=== PATIENT | female | born 1980 | race Caucasian/White ===

== ENCOUNTER 2017-07-02 01:27 | Inpatient (IN) | payer BC, MEDICAID ==
[2017-07-02] MEDS ORDERED: Ondansetron 4 MG/2 ML SDV IV PRN (03:59)
[2017-07-02] MEDS ORDERED: Lactated Ringers 1,000 ML IV ONE (04:00)
[2017-07-02] MEDS ORDERED: Ropivacaine 100 ML ONE (04:43)
[2017-07-02] MEDS ORDERED: Ropivacaine 200 MG in Premix Bag 1 BAG EPIDUR SCH (04:45)
[2017-07-02] MEDS ORDERED: Lidocaine 1% 50 ML MDV ONE (07:19)
[2017-07-02] MEDS ORDERED: Lidocaine 1% 50 ML MDV INJECT SCH (09:45)
[2017-07-02] MEDS ORDERED: Sodium Chloride 0.9% 10 ML Syringe FLUSH PRN (09:48)
[2017-07-02] MEDS ORDERED: Acetaminophen 325 MG Tab PO PRN (09:48)
[2017-07-02] MEDS ORDERED: Ibuprofen 200 MG Tab, 24 Tab Bulk Bottle PO PRN (09:52)
[2017-07-02] MEDS ORDERED: Acetaminophen 325 MG Tab, 50 Tab Bulk Bottle PO PRN (09:52)
[2017-07-02] MEDS ORDERED: Lanolin 100% Cream 40 GM Tube TOP PRN (09:58)
[2017-07-02] MEDS ORDERED: Docusate Sodium 100 MG Cap PO PRN (09:58)
[2017-07-02] MEDS ORDERED: Witch Hazel Medicated Pads 100/Jar TOP PRN (09:58)
--- NOTE | 2017-07-02 11:39 | PCM.LDHP ---
L&D History of Present Illness - General Date of Service: 07/02/17 Admit Problem/Dx: Patient Status Order with Admit Dx/Problem 07/02/17 03:59 Patient Status [ADT] Routine 07/02/17 09:27 Patient Status [ADT] Routine Admission Diagnosis/Problem Admission Diagnosis/Problem Source of Information: Patient History Limitations: Reports: No Limitations - Related Data Allergies/Adverse Reactions: Allergies Allergy/AdvReac Type Severity Reaction Status Date / Time No Known Allergies Allergy Verified 07/02/17 01:37 Home Medications: Home Meds Fish Oil/[place]-3 Fatty Acids [Fish Oil 1,000 MG] 1 gm PO DAILY 07/02/17 [History ] Vits #93/Iron Fum/FA [ Formula Tablet] 1 tab PO DAILY 07/02/17 [History] Past Medical History 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: Other OB/BYN History: LINO-07/02/2017 Psychiatric History: Reports: Depression 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 - Past Surgical History HEENT Surgical History: Reports: Other (See Below) Other HEENT Surgeries/Procedures: wear glasses Cardiovascular Surgical History: Reports: Vascular Surgery Other Cardiovascular Surgeries/Procedures: varicose veins Other Musculoskeletal Surgeries/Procedures:: left wrist surgery and right pinky finger Social & Family History - Tobacco Use Smoking Status *Q: Never Smoker Second Hand Smoke Exposure: No - Caffeine Use Caffeine Use: Reports: Coffee Other Caffeine Use: 1 cup per day - Recreational Drug Use Recreational Drug Use: No H&P Review of Systems - Review of Systems: Review Of Systems: See Below General: Reports: No Symptoms HEENT: Reports: No Symptoms Pulmonary: Reports: No Symptoms Cardiovascular: Reports: No Symptoms Gastrointestinal: Reports: No Symptoms Genitourinary: Reports: No Symptoms Musculoskeletal: Reports: No Symptoms Skin: Reports: No Symptoms Psychiatric: Reports: No Symptoms Neurological: Reports: No Symptoms Hematologic/Lymphatic: Reports: No Symptoms Immunologic: Reports: No Symptoms L&D Exam - Exam Exam: See Below - Vital Signs Vital Signs: Last Vital Signs Temp 37.4 C 07/02/17 01:59 Pulse 74 07/02/17 01:59 Resp 16 07/02/17 01:59 BP 115/81 07/02/17 01:59 Pulse Ox Weight: 69.4 kg - OB Specific Contraction Duration (sec): 40-80 Contraction Frequency (min): 4.5-5 Contraction Intensity: Moderate Movement: Active Heart Tones: Present Presentation: Vertex - Rubin Score Rubin Score Cervix Position: Anterior Rubin Score Consistency: Soft Rubin Score Effacement: 51-70% Rubin Score Dilation: 3-4 cm Rubin Score Infant's Station: -1 ,0 Rubin Score Total: 10 - Exam General: Alert, Oriented HEENT: PERRLA, Conjunctiva Clear, EACs Clear, EOMI, Hearing Intact, Mucosa Moist & [place], Nares Patent, Normal Nasal Septum, Posterior Pharynx Clear, TMs Clear Neck: Supple, Trachea Midline Lungs: Clear to Auscultation, Normal Respiratory Effort Cardiovascular: Regular Rate, Regular Rhythm GI/Abdominal Exam: Normal Bowel Sounds, Soft, Non-Tender, No Organomegaly, No Distention, No Abnormal Bruit, No Mass, Pelvis Stable Genitourinary: Normal external exam, Normal bimanual exam Back Exam: Normal Inspection, Full Range of Motion Extremities: Normal Inspection, Normal Range of Motion, Non-Tender, No Pedal Edema, Normal Capillary Refill Skin: Warm, Dry, Intact Neurological: Cranial Nerves Intact, Reflexes Equal Bilateral Psychiatric: Alert, Normal Affect, Normal Mood - Patient Data Lab Results Last 24 hrs: Laboratory Results - last 24 hr 07/02/17 07/02/17 07/02/17 Range/Units 01:37 04:00 04:00 WBC (4.5-11.0) K/uL RBC (3.30-5.50) M/uL Hgb (12.0-15.0) g/dL Hct (36.0-48.0) % MCV (80-98) fL MCH (27-31) pg MCHC (32-36) % Plt Count (150-400) K/uL Urine Color Yellow Urine Appearance Cloudy Urine pH 7.0 (4.5-8.0) Ur Specific [place] 1.015 (1.008-1.030) Urine Protein Negative (NEGATIVE) mg/dL Urine Glucose (UA) Normal (NEGATIVE) mg/dL Urine Ketones Negative (NEGATIVE) mg/dL Urine Occult Blood Negative (NEGATIVE) Urine Nitrite Negative (NEGATIVE) Urine Bilirubin Negative (NEGATIVE) Urine Urobilinogen Normal (NORMAL) mg/dL Ur Leukocyte Esterase Negative (NEGATIVE) Urine RBC 0-5 (0-5) Urine WBC 0-5 (0-5) Ur Epithelial Cells Few Amorphous Sediment Numerous Urine Bacteria Rare Urine Mucus Few Membrane Rupture Negative (NEGATIVE) Urine Opiates Screen Negative (NEGATIVE) Ur Oxycodone Screen Negative (NEGATIVE) Urine Methadone Screen Negative (NEGATIVE) Ur Propoxyphene Screen Negative (NEGATIVE) Ur Barbiturates Screen Negative (NEGATIVE) Ur Tricyclics Screen Negative (NEGATIVE) Ur Phencyclidine Scrn Negative (NEGATIVE) Ur Amphetamine Screen Negative (NEGATIVE) U Methamphetamines Scrn Negative (NEGATIVE) Urine MDMA Screen Negative (NEGATIVE) U Benzodiazepines Scrn Negative (NEGATIVE) U Cocaine Metab Screen Negative (NEGATIVE) U Marijuana (THC) Screen Negative (NEGATIVE) 07/02/17 Range/Units 04:00 WBC 7.5 (4.5-11.0) K/uL RBC 3.90 (3.30-5.50) M/uL Hgb 12.3 (12.0-15.0) g/dL Hct 37.3 (36.0-48.0) % MCV 96 (80-98) fL MCH 32 H (27-31) pg MCHC 33 (32-36) % Plt Count 185 (150-400) K/uL Urine Color Urine Appearance Urine pH (4.5-8.0) Ur Specific [place] (1.008-1.030) Urine Protein (NEGATIVE) mg/dL Urine Glucose (UA) (NEGATIVE) mg/dL Urine Ketones (NEGATIVE) mg/dL Urine Occult Blood (NEGATIVE) Urine Nitrite (NEGATIVE) Urine Bilirubin (NEGATIVE) Urine Urobilinogen (NORMAL) mg/dL Ur Leukocyte Esterase (NEGATIVE) Urine RBC (0-5) Urine WBC (0-5) Ur Epithelial Cells Amorphous Sediment Urine Bacteria Urine Mucus Membrane Rupture (NEGATIVE) Urine Opiates Screen (NEGATIVE) Ur Oxycodone Screen (NEGATIVE) Urine Methadone Screen (NEGATIVE) Ur Propoxyphene Screen (NEGATIVE) Ur Barbiturates Screen (NEGATIVE) Ur Tricyclics Screen (NEGATIVE) Ur Phencyclidine Scrn (NEGATIVE) Ur Amphetamine Screen (NEGATIVE) U Methamphetamines Scrn (NEGATIVE) Urine MDMA Screen (NEGATIVE) U Benzodiazepines Scrn (NEGATIVE) U Cocaine Metab Screen (NEGATIVE) U Marijuana (THC) Screen (NEGATIVE) Result Diagrams: 07/02/17 04:00 - Problem List (1) Active labor at term SNOMED Code(s): 47017971 ICD Code: QQS5067 - Status: Acute Current Visit: Yes (2) Multigravida of advanced maternal age in third trimester SNOMED Code(s): 751526232, 788477012 ICD Code: O09.523 - SUPERVISION OF ELDERLY MULTIGRAVIDA, THIRD TRIMESTER Status: Acute Current Visit: Yes (3) Normal vaginal delivery of ninth SNOMED Code(s): 46198260, 258120495 ICD Code: O80 - ENCOUNTER FOR FULL-TERM UNCOMPLICATED DELIVERY Status: Acute Current Visit: Yes (4) SNOMED Code(s): 67804400 ICD Code: Z34.90 - ENCNTR FOR SUPRVSN OF NORMAL , UNSP, UNSP TRIMESTER Status: Acute Current Visit: Yes Qualifiers: Weeks of gestation: 40 weeks Qualified Code(s): Z3A.40 - 40 weeks gestation of (5) affected by growth restriction SNOMED Code(s): 423312574, 797324546 ICD Code: O36.5990 - MATERN CARE FOR OTH OR SUSP POOR FETL GRTH, UNSP TRI, UNSP Status: Acute Current Visit: Yes (6) SROM (spontaneous rupture of membranes) SNOMED Code(s): 974487860 ICD Code: WDO5980 - Status: Acute Current Visit: Yes Problem List Initiated/Reviewed/Updated: Yes Orders Last 24hrs: Active Orders 24 hr Category Date Time Status Patient Status [ADT] Routine ADT 07/02/17 03:59 Active Patient Status [ADT] Routine ADT 07/02/17 09:27 Active Communication Order [RC] ASDIRECTED Care 07/02/17 09:48 Active Heart Tones [RC] PER UNIT ROUTINE Care 07/02/17 09:48 Active Notify Provider Vital Signs [RC] PRN Care 07/02/17 03:59 Active Notify Provider [RC] PRN Care 07/02/17 09:48 Active OB Check [OM.PC] Click to Edit Care 07/02/17 01:36 Ordered Up ad Winter [RC] ASDIRECTED Care 07/02/17 09:48 Active Vital Signs [RC] PER UNIT ROUTINE Care 07/02/17 09:48 Active Vital Signs [RC] PFP Care 07/02/17 09:52 Active CBC W/O DIFF,HEMOGRAM [HEME] Routine Lab 07/03/17 06:00 Ordered Acetaminophen [Tylenol Bulk Bottle] Med 07/02/17 09:52 Active 325 - 650 mg PO Q4H PRN Acetaminophen [Tylenol] Med 07/02/17 09:48 Active 650 mg PO Q4H PRN Acetaminophen/Codeine [Tylenol with Codeine No.3 300MG/ Med 07/02/17 09:58 Active 30MG] 1 - 2 tab PO Q4H PRN Docusate Sodium [Colace] Med 07/02/17 09:58 Active 100 mg PO BID PRN Ibuprofen [Motrin Bulk Bottle] Med 07/02/17 09:52 Active 600 mg PO Q6H PRN Lanolin [Lansinoh HPA] Med 07/02/17 09:58 Active 0 gm TOP ASDIRECTED PRN Ondansetron [Zofran] Med 07/02/17 03:59 Active 4 mg IV Q4H PRN Vit with Ca/FA/Iron [ Plus Iron] Med 07/03/17 09:00 Active 1 each PO DAILY Sodium Chloride 0.9% [Saline Flush] Med 07/02/17 09:48 Active 10 ml FLUSH ASDIRECTED PRN Witch Amanda [Tucks] Med 07/02/17 09:58 Active 1 pad TOP ASDIRECTED PRN Assess Lochia [WOMSER] Per Unit Routine Oth 07/02/17 09:52 Ordered Assess Uterine Involution [WOMSER] Per Unit Routine Oth 07/02/17 09:52 Ordered Saline Lock Insert [OM.PC] Routine Oth 07/02/17 09:48 Ordered Resuscitation Status Routine Resus Stat 07/02/17 09:48 Ordered Medication Orders Acetaminophen (Tylenol) 650 mg PO Q4H PRN PRN Reason: Pain (Mild 1-3) and fever Acetaminophen (Tylenol Bulk Bottle) 325 - 650 mg PO Q4H PRN PRN Reason: Pain Acetaminophen/Codeine Phosphate (Tylenol With Codeine No.3 300mg/30mg) 1 - 2 tab PO Q4H PRN PRN Reason: Pain (moderate 4-6) Docusate Sodium (Colace) 100 mg PO BID PRN PRN Reason: Constipation Emollient Ointment (Lansinoh Hpa) 0 gm TOP ASDIRECTED PRN PRN Reason: Sore Nipples Ibuprofen (Motrin Bulk Bottle) 600 mg PO Q6H PRN PRN Reason: Pain Ondansetron HCl (Zofran) 4 mg IV Q4H PRN PRN Reason: Nausea/Vomiting Prenat Multivit/[place]/Iron/Folic Ac ( Plus Iron) 1 each PO DAILY WYATT Sodium Chloride (Saline Flush) 10 ml FLUSH ASDIRECTED PRN PRN Reason: Keep Vein Open Witch Amanda (Tucks) 1 pad TOP ASDIRECTED PRN PRN Reason: Hemorrhoids Assessment/Plan Comment:: 07/02/2017 37 yo presented to labor and delivery in labor at 40 weeks gestation SVE-4/75/-1 GBS negative, A positive, Rubella Immune, RPR nonreactive, Hep B negative, HIV negative Plan- Monitor for active labor Up and about Intermittent monitoring Epidural for pain management per patient request Anticipate and plan for a vaginal delivery
--- NOTE | 2017-07-02 11:42 | PCM.PNLD ---
Labor Progress Note - VS & Meds Vital Signs: Last Vital Signs Temp 37.4 C 07/02/17 01:59 Pulse 74 07/02/17 01:59 Resp 16 07/02/17 01:59 BP 115/81 07/02/17 01:59 Pulse Ox Active Medications: Current Medications Acetaminophen (Tylenol) 650 mg PO Q4H PRN PRN Reason: Pain (Mild 1-3) and fever Acetaminophen (Tylenol Bulk Bottle) 325 - 650 mg PO Q4H PRN PRN Reason: Pain Acetaminophen/Codeine Phosphate (Tylenol With Codeine No.3 300mg/30mg) 1 - 2 tab PO Q4H PRN PRN Reason: Pain (moderate 4-6) Docusate Sodium (Colace) 100 mg PO BID PRN PRN Reason: Constipation Emollient Ointment (Lansinoh Hpa) 0 gm TOP ASDIRECTED PRN PRN Reason: Sore Nipples Ibuprofen (Motrin Bulk Bottle) 600 mg PO Q6H PRN PRN Reason: Pain Ondansetron HCl (Zofran) 4 mg IV Q4H PRN PRN Reason: Nausea/Vomiting Prenat Multivit/[place]/Iron/Folic Ac ( Plus Iron) 1 each PO DAILY WYATT Sodium Chloride (Saline Flush) 10 ml FLUSH ASDIRECTED PRN PRN Reason: Keep Vein Open Tammy Patel (Tucks) 1 pad TOP ASDIRECTED PRN PRN Reason: Hemorrhoids Discontinued Medications Ropivacaine (Naropin 0.2%) Confirm Administered Dose 100 mls @ as directed .ROUTE .STK-MED ONE Stop: 07/02/17 04:44 Oxytocin/Sodium Chloride (Pitocin In Ns 20 Units/1,000 Ml) Confirm Administered Dose 20 unit in 1,000 mls @ as directed .ROUTE .STK-MED ONE Stop: 07/02/17 07:20 Oxytocin/Sodium Chloride (Pitocin In Ns 20 Units/1,000 Ml) 20 unit in 1,000 mls @ 2,997 mls/hr IV ONETIME ONE; 999 MUNITS/MIN PRN Reason: Protocol Stop: 07/02/17 10:11 Lidocaine HCl (Xylocaine 1%) Confirm Administered Dose 100 ml .ROUTE .STK-MED ONE Stop: 07/02/17 07:20 - Uterine Contractions Uterine Monitoring Mode: External [place] Contraction Frequency (min): 4.5-5 Contraction Duration (sec): 40-80 Contraction Intensity: Moderate Uterine Resting Tone: Soft - Vaginal Exam Dilation (cm): 7-8 Effacement (Percent): 90 Station: 0 Cervical Position: Anterior Sterile Vaginal Exam Performed By: Hemalatha Ohara - Labor Progress (Free Text) Labor Progress: 07/02/2017 Progressing well Epidural in place SVE-/0 SROM Resting through contractions FHTs category one Contractions every 4-7 minutes Plan- Continue to monitor labor Continue to monitor FHTs Pitocin per protocol Anticipate and plan for a vaginal delivery
--- NOTE | 2017-07-02 11:50 | PCM.DEL ---
L & D Note - General Info Date of Service: 07/02/17 Mother's Due Date: 07/02/17 - Delivery Note Labor: Spontaneous, Augmented by Oxytocin Delivery Outcome: Livebirth Infant Delivery Method: Spontaneous Vaginal Delivery Delivery Mode: Spontaneous Presentation: Left Occiput Anterior (MELE) Nuchal Cord: Present (around shoulders times one), Reduced Anesthesia Type: Epidural Amniotic Fluid Description: Clear Episiotomy Type: None Laceration: None Placenta: Intact, Spontaneous Cord: 3 Vessels Estimated Blood Loss: 100 Resuscitation Needed: No [place]: Bulb Syringe, Stimulated, Warmed, [place] Used Score 1 min: 9 Score 5 min: 9 Score 10 min: 10 Second Stage Interventions: Reports: Encouragement Given, Pushing Effectively Delivery Comments (Free Text/Narrative):: 07/02/2017 37 yo at 40 0/7 gestational weeks delivered a viable female at 0927 on 07/02/2017 [facility] with a shoulder nuchal cord easily reduced, -9/9/10, weight 5lbs 14oz, length-19.9inches, Infant placed on mothers abdomen, stimulated, dried, bulb suctioned and vigorously cried, Cord was double clamped and cut by father of the infant, three vessel cord, placenta intact and spontaneous, No laceration noted of cervix, perineum, vagina, or rectum EBL-100ml Mother in labor room in stable condition with infant skin to skin in stable condition. - General Info Date of Service: 07/02/17 Functional Status: Reports: Pain Controlled - Review of Systems General: Reports: No Symptoms HEENT: Reports: No Symptoms Pulmonary: Reports: No Symptoms Cardiovascular: Reports: No Symptoms Gastrointestinal: Reports: No Symptoms Genitourinary: Reports: No Symptoms Musculoskeletal: Reports: No Symptoms Skin: Reports: No Symptoms Neurological: Reports: No Symptoms Psychiatric: Reports: No Symptoms - Patient Data Vitals - Most Recent: Last Vital Signs Temp 37.4 C 07/02/17 01:59 Pulse 74 07/02/17 01:59 Resp 16 07/02/17 01:59 BP 115/81 07/02/17 01:59 Pulse Ox Weight - Most Recent: 69.4 kg Lab Results Last 24 Hours: Laboratory Results - last 24 hr 07/02/17 07/02/17 07/02/17 Range/Units 01:37 04:00 04:00 WBC (4.5-11.0) K/uL RBC (3.30-5.50) M/uL Hgb (12.0-15.0) g/dL Hct (36.0-48.0) % MCV (80-98) fL MCH (27-31) pg MCHC (32-36) % Plt Count (150-400) K/uL Urine Color Yellow Urine Appearance Cloudy Urine pH 7.0 (4.5-8.0) Ur Specific [place] 1.015 (1.008-1.030) Urine Protein Negative (NEGATIVE) mg/dL Urine Glucose (UA) Normal (NEGATIVE) mg/dL Urine Ketones Negative (NEGATIVE) mg/dL Urine Occult Blood Negative (NEGATIVE) Urine Nitrite Negative (NEGATIVE) Urine Bilirubin Negative (NEGATIVE) Urine Urobilinogen Normal (NORMAL) mg/dL Ur Leukocyte Esterase Negative (NEGATIVE) Urine RBC 0-5 (0-5) Urine WBC 0-5 (0-5) Ur Epithelial Cells Few Amorphous Sediment Numerous Urine Bacteria Rare Urine Mucus Few Membrane Rupture Negative (NEGATIVE) Urine Opiates Screen Negative (NEGATIVE) Ur Oxycodone Screen Negative (NEGATIVE) Urine Methadone Screen Negative (NEGATIVE) Ur Propoxyphene Screen Negative (NEGATIVE) Ur Barbiturates Screen Negative (NEGATIVE) Ur Tricyclics Screen Negative (NEGATIVE) Ur Phencyclidine Scrn Negative (NEGATIVE) Ur Amphetamine Screen Negative (NEGATIVE) U Methamphetamines Scrn Negative (NEGATIVE) Urine MDMA Screen Negative (NEGATIVE) U Benzodiazepines Scrn Negative (NEGATIVE) U Cocaine Metab Screen Negative (NEGATIVE) U Marijuana (THC) Screen Negative (NEGATIVE) 07/02/17 Range/Units 04:00 WBC 7.5 (4.5-11.0) K/uL RBC 3.90 (3.30-5.50) M/uL Hgb 12.3 (12.0-15.0) g/dL Hct 37.3 (36.0-48.0) % MCV 96 (80-98) fL MCH 32 H (27-31) pg MCHC 33 (32-36) % Plt Count 185 (150-400) K/uL Urine Color Urine Appearance Urine pH (4.5-8.0) Ur Specific [place] (1.008-1.030) Urine Protein (NEGATIVE) mg/dL Urine Glucose (UA) (NEGATIVE) mg/dL Urine Ketones (NEGATIVE) mg/dL Urine Occult Blood (NEGATIVE) Urine Nitrite (NEGATIVE) Urine Bilirubin (NEGATIVE) Urine Urobilinogen (NORMAL) mg/dL Ur Leukocyte Esterase (NEGATIVE) Urine RBC (0-5) Urine WBC (0-5) Ur Epithelial Cells Amorphous Sediment Urine Bacteria Urine Mucus Membrane Rupture (NEGATIVE) Urine Opiates Screen (NEGATIVE) Ur Oxycodone Screen (NEGATIVE) Urine Methadone Screen (NEGATIVE) Ur Propoxyphene Screen (NEGATIVE) Ur Barbiturates Screen (NEGATIVE) Ur Tricyclics Screen (NEGATIVE) Ur Phencyclidine Scrn (NEGATIVE) Ur Amphetamine Screen (NEGATIVE) U Methamphetamines Scrn (NEGATIVE) Urine MDMA Screen (NEGATIVE) U Benzodiazepines Scrn (NEGATIVE) U Cocaine Metab Screen (NEGATIVE) U Marijuana (THC) Screen (NEGATIVE) Med Orders - Current: Current Medications Acetaminophen (Tylenol) 650 mg PO Q4H PRN PRN Reason: Pain (Mild 1-3) and fever Acetaminophen (Tylenol Bulk Bottle) 325 - 650 mg PO Q4H PRN PRN Reason: Pain Acetaminophen/Codeine Phosphate (Tylenol With Codeine No.3 300mg/30mg) 1 - 2 tab PO Q4H PRN PRN Reason: Pain (moderate 4-6) Docusate Sodium (Colace) 100 mg PO BID PRN PRN Reason: Constipation Emollient Ointment (Lansinoh Hpa) 0 gm TOP ASDIRECTED PRN PRN Reason: Sore Nipples Ibuprofen (Motrin Bulk Bottle) 600 mg PO Q6H PRN PRN Reason: Pain Ondansetron HCl (Zofran) 4 mg IV Q4H PRN PRN Reason: Nausea/Vomiting Prenat Multivit/[place]/Iron/Folic Ac ( Plus Iron) 1 each PO DAILY WYATT Sodium Chloride (Saline Flush) 10 ml FLUSH ASDIRECTED PRN PRN Reason: Keep Vein Open Witch Amanda (Tucks) 1 pad TOP ASDIRECTED PRN PRN Reason: Hemorrhoids Discontinued Medications Ropivacaine (Naropin 0.2%) Confirm Administered Dose 100 mls @ as directed .ROUTE .STK-MED ONE Stop: 07/02/17 04:44 Oxytocin/Sodium Chloride (Pitocin In Ns 20 Units/1,000 Ml) Confirm Administered Dose 20 unit in 1,000 mls @ as directed .ROUTE .STK-MED ONE Stop: 07/02/17 07:20 Oxytocin/Sodium Chloride (Pitocin In Ns 20 Units/1,000 Ml) 20 unit in 1,000 mls @ 2,997 mls/hr IV ONETIME ONE; 999 MUNITS/MIN PRN Reason: Protocol Stop: 07/02/17 10:11 Lidocaine HCl (Xylocaine 1%) Confirm Administered Dose 100 ml .ROUTE .STK-MED ONE Stop: 07/02/17 07:20 - Exam General: Alert, Oriented HEENT: Pupils Equal, Pupils Reactive, EOMI, Mucous Membr. Moist/[place] Neck: Supple Lungs: Clear to Auscultation, Normal Respiratory Effort Cardiovascular: Regular Rate, Regular Rhythm GI/Abdominal Exam: Normal Bowel Sounds, Soft, Non-Tender, No Organomegaly, No Distention, No Abnormal Bruit, No Mass, Pelvis Stable (Female) Exam: Normal External Exam, Normal Bimanual Exam Back Exam: Normal Inspection, Full Range of Motion Extremities: Normal Inspection, Normal Range of Motion, Non-Tender, No Pedal Edema, Normal Capillary Refill Skin: Warm, Dry, Intact Wound/Incisions: Healing Well Neurological: No New Focal Deficit Psy/Mental Status: Alert, Normal Affect, Normal Mood - Problem List & Annotations (1) Active labor at term SNOMED Code(s): 85687203 Code(s): TAQ7008 - Status: Acute Current Visit: Yes (2) Multigravida of advanced maternal age in third trimester SNOMED Code(s): 751199881, 044037801 Code(s): O09.523 - SUPERVISION OF ELDERLY MULTIGRAVIDA, THIRD TRIMESTER Status: Acute Current Visit: Yes (3) Normal vaginal delivery of ninth SNOMED Code(s): 28233446, 330969539 Code(s): O80 - ENCOUNTER FOR FULL-TERM UNCOMPLICATED DELIVERY Status: Acute Current Visit: Yes (4) SNOMED Code(s): 85360745 Code(s): Z34.90 - ENCNTR FOR SUPRVSN OF NORMAL , UNSP, UNSP TRIMESTER Status: Acute Current Visit: Yes Qualifiers: Weeks of gestation: 40 weeks Qualified Code(s): Z3A.40 - 40 weeks gestation of (5) affected by growth restriction SNOMED Code(s): 518847096, 532644919 Code(s): O36.5990 - MATERN CARE FOR OTH OR SUSP POOR FETL GRTH, UNSP TRI, UNSP Status: Acute Current Visit: Yes (6) SROM (spontaneous rupture of membranes) SNOMED Code(s): 461142112 Code(s): SZA5261 - Status: Acute Current Visit: Yes - Problem List Review Problem List Initiated/Reviewed/Updated: Yes - My Orders Last 24 Hours: My Active Orders 07/02/17 01:36 OB Check [OM.PC] Click to Edit 07/02/17 03:59 Patient Status [ADT] Routine Notify Provider Vital Signs [RC] PRN Ondansetron [Zofran] 4 mg IV Q4H PRN 07/02/17 09:27 Patient Status [ADT] Routine 07/02/17 09:48 Communication Order [RC] ASDIRECTED Heart Tones [RC] PER UNIT ROUTINE Notify Provider [RC] PRN Up ad Winter [RC] ASDIRECTED Vital Signs [RC] PER UNIT ROUTINE Acetaminophen [Tylenol] 650 mg PO Q4H PRN Sodium Chloride 0.9% [Saline Flush] 10 ml FLUSH ASDIRECTED PRN Saline Lock Insert [OM.PC] Routine Resuscitation Status Routine 07/02/17 09:52 Vital Signs [RC] PFP Acetaminophen [Tylenol Bulk Bottle] 325 - 650 mg PO Q4H PRN Ibuprofen [Motrin Bulk Bottle] 600 mg PO Q6H PRN Assess Lochia [WOMSER] Per Unit Routine Assess Uterine Involution [WOMSER] Per Unit Routine 07/02/17 09:58 Acetaminophen/Codeine [Tylenol with Codeine No.3 300MG/30MG] 1 - 2 tab PO Q4H PRN Docusate Sodium [Colace] 100 mg PO BID PRN Lanolin [Lansinoh HPA] 0 gm TOP ASDIRECTED PRN Witch Amanda [Tucks] 1 pad TOP ASDIRECTED PRN 07/03/17 06:00 CBC W/O DIFF,HEMOGRAM [HEME] Routine 07/03/17 09:00 Vit with Ca/FA/Iron [ Plus Iron] 1 each PO DAILY - Assessment Assessment:: 07/02/2017 37 yo G12 now P9 at 40 0/7 gestational weeks without complications A positive, GBS negative, RPR nonreactive, Rubella Immune, Hep B negative, HIV negative 07/02/2017 Plan- Routine Cares Encourage and Support Plan a 24-48 hr discharge - Plan Plan:: 07/02/2017 37 yo presented to labor and delivery in labor at 40 weeks gestation SVE-4//-1 GBS negative, A positive, Rubella Immune, RPR nonreactive, Hep B negative, HIV negative Plan- Monitor for active labor Up and about Intermittent monitoring Epidural for pain management per patient request Anticipate and plan for a vaginal delivery
--- NOTE | 2017-07-02 13:35 | ANES ---
DATE OF SERVICE: 07/02/2017 TIME: 04:45. INDICATIONS: I was called to the Labor and Delivery Unit to evaluate Mrs. Christianson for a labor epidural. She is in active labor, it is a multipara. TECHNIQUE: The risks and benefits of the procedure were explained to the patient. She wished to proceed with labor epidural. She was placed in a sitting position. Her back was prepped x3 with Betadine and 1% lidocaine skin local was used. A 17-gauge Tuohy needle was inserted at L3-L4 using a loss of resistance technique. The epidural had very good feel throughout. The epidural space was easily identified. There was negative CSF, negative blood, and negative paresthesias noted. Therefore, a catheter was threaded to 15 cm at the skin. The catheter had negative CSF, negative blood, and negative paresthesias noted. Therefore, a 1.5% lidocaine test dose was given and this test dose was negative. The catheter was then secured with Tegaderm and tape. The patient placed in supine position. The epidural bolus of 10 mL of 0.2% ropivacaine was given. Her vital signs remained stable throughout after the bolus, therefore 0.2% ropivacaine drip was started at 12 mL/h. Vital signs remained stable throughout the procedure and we will continue to monitor throughout her Labor and Delivery Stay. Titus Merritt CRNA /[id number]
[2017-07-02] MEDS: Acetaminophen/Codeine 300-30 MG Tab PO PRN (21:31)
--- NOTE | 2017-07-03 08:06 | PCM.PNPP ---
- General Info Date of Service: 07/03/17 ( Day One) Functional Status: Reports: Pain Controlled - Review of Systems General: Reports: No Symptoms HEENT: Reports: No Symptoms Pulmonary: Reports: No Symptoms Cardiovascular: Reports: No Symptoms Gastrointestinal: Reports: No Symptoms Genitourinary: Reports: No Symptoms Musculoskeletal: Reports: No Symptoms Skin: Reports: No Symptoms Neurological: Reports: No Symptoms Psychiatric: Reports: No Symptoms - General Info Date of Service: 07/03/17 - Patient Data Vital Signs - Most Recent: Last Vital Signs Temp 36.4 C 07/03/17 08:01 Pulse 56 L 07/03/17 08:01 Resp 16 07/03/17 08:01 BP 99/72 07/03/17 08:01 Pulse Ox 100 07/03/17 04:55 Weight - Most Recent: 69.4 kg I&O - Last 24 Hours: Intake & Output 07/02/17 07/03/17 07/03/17 22:59 06:59 14:59 Intake Total 4850 Balance 4850 Lab Results - Last 24 Hours: Laboratory Results - last 24 hr 07/02/17 07/02/17 07/02/17 Range/Units 04:00 04:00 04:00 WBC 7.5 (4.5-11.0) K/uL RBC 3.90 (3.30-5.50) M/uL Hgb 12.3 (12.0-15.0) g/dL Hct 37.3 (36.0-48.0) % MCV 96 (80-98) fL MCH 32 H (27-31) pg MCHC 33 (32-36) % Plt Count 185 (150-400) K/uL Membrane Rupture Negative (NEGATIVE) Urine Opiates Screen Negative (NEGATIVE) Ur Oxycodone Screen Negative (NEGATIVE) Urine Methadone Screen Negative (NEGATIVE) Ur Propoxyphene Screen Negative (NEGATIVE) Ur Barbiturates Screen Negative (NEGATIVE) Ur Tricyclics Screen Negative (NEGATIVE) Ur Phencyclidine Scrn Negative (NEGATIVE) Ur Amphetamine Screen Negative (NEGATIVE) U Methamphetamines Scrn Negative (NEGATIVE) Urine MDMA Screen Negative (NEGATIVE) U Benzodiazepines Scrn Negative (NEGATIVE) U Cocaine Metab Screen Negative (NEGATIVE) U Marijuana (THC) Screen Negative (NEGATIVE) 07/03/17 Range/Units 06:26 WBC 7.5 (4.5-11.0) K/uL RBC 3.44 (3.30-5.50) M/uL Hgb 10.6 L (12.0-15.0) g/dL Hct 33.4 L (36.0-48.0) % MCV 97 (80-98) fL MCH 31 (27-31) pg MCHC 32 (32-36) % Plt Count 171 (150-400) K/uL Membrane Rupture (NEGATIVE) Urine Opiates Screen (NEGATIVE) Ur Oxycodone Screen (NEGATIVE) Urine Methadone Screen (NEGATIVE) Ur Propoxyphene Screen (NEGATIVE) Ur Barbiturates Screen (NEGATIVE) Ur Tricyclics Screen (NEGATIVE) Ur Phencyclidine Scrn (NEGATIVE) Ur Amphetamine Screen (NEGATIVE) U Methamphetamines Scrn (NEGATIVE) Urine MDMA Screen (NEGATIVE) U Benzodiazepines Scrn (NEGATIVE) U Cocaine Metab Screen (NEGATIVE) U Marijuana (THC) Screen (NEGATIVE) Med Orders - Current: Current Medications Acetaminophen (Tylenol) 650 mg PO Q4H PRN PRN Reason: Pain (Mild 1-3) and fever Acetaminophen (Tylenol Bulk Bottle) 325 - 650 mg PO Q4H PRN PRN Reason: Pain Last Admin: 07/02/17 12:23 Dose: 1 bottle Acetaminophen/Codeine Phosphate (Tylenol With Codeine No.3 300mg/30mg) 1 - 2 tab PO Q4H PRN PRN Reason: Pain (moderate 4-6) Last Admin: 07/02/17 21:31 Dose: 1 tab Docusate Sodium (Colace) 100 mg PO BID PRN PRN Reason: Constipation Emollient Ointment (Lansinoh Hpa) 0 gm TOP ASDIRECTED PRN PRN Reason: Sore Nipples Last Admin: 07/02/17 21:32 Dose: 1 applic Ropivacaine 200 mg/ Premix 100 mls @ 0 mls/hr EPIDUR ASDIRECTED WYATT Last Admin: 07/02/17 05:00 Dose: 12 mls/hr Ibuprofen (Motrin Bulk Bottle) 600 mg PO Q6H PRN PRN Reason: Pain Last Admin: 07/02/17 12:23 Dose: 1 bottle Ondansetron HCl (Zofran) 4 mg IV Q4H PRN PRN Reason: Nausea/Vomiting Prenat Multivit/Rich/Iron/Folic Ac ( Plus Iron) 1 each PO DAILY WYATT Sodium Chloride (Saline Flush) 10 ml FLUSH ASDIRECTED PRN PRN Reason: Keep Vein Open Witch Amanda (Tucks) 1 pad TOP ASDIRECTED PRN PRN Reason: Hemorrhoids Discontinued Medications Ropivacaine (Naropin 0.2%) Confirm Administered Dose 100 mls @ as directed .ROUTE .STK-MED ONE Stop: 07/02/17 04:44 Oxytocin/Sodium Chloride (Pitocin In Ns 20 Units/1,000 Ml) Confirm Administered Dose 20 unit in 1,000 mls @ as directed .ROUTE .STK-MED ONE Stop: 07/02/17 07:20 Last Admin: 07/02/17 12:25 Dose: Not Given Oxytocin/Sodium Chloride (Pitocin In Ns 20 Units/1,000 Ml) 20 unit in 1,000 mls @ 2,997 mls/hr IV ONETIME ONE; 999 MUNITS/MIN PRN Reason: Protocol Stop: 07/02/17 10:11 Last Admin: 07/02/17 12:24 Dose: 999 munits/min, 2,997 mls/hr Lactated Ringer's (Ringers, Lactated) 1,000 mls @ 999 mls/hr IV BOLUS ONE Stop: 07/02/17 05:00 Last Admin: 07/02/17 04:00 Dose: 999 mls/hr Lidocaine HCl (Xylocaine 1%) Confirm Administered Dose 100 ml .ROUTE .STK-MED ONE Stop: 07/02/17 07:20 Last Admin: 07/02/17 12:25 Dose: Not Given - Interaction Disposition, : at Bedside Infant Interaction: Holding Infant Feeding: Breastfed Infant; Nursed Well Support Person: - Recovery Exam Fundal Tone: Firm Fundal Level: 2 Fingerbreadths Below Umbilicus Fundal Placement: Midline Lochia Amount: Small Lochia Color: Rubra/Red Perineum Description: Intact, Minimal Bruising/Swelling Episiotomy/Laceration: None Urinary Elimination: Voided - Exam General: Alert, Oriented HEENT: Pupils Equal Neck: Supple Lungs: Clear to Auscultation, Normal Respiratory Effort Cardiovascular: Regular Rate, Regular Rhythm GI/Abdominal Exam: Normal Bowel Sounds, Soft, Non-Tender, No Organomegaly, No Distention, No Abnormal Bruit, No Mass, Pelvis Stable Extremities: Normal Inspection, Normal Range of Motion, Non-Tender, No Pedal Edema, Normal Capillary Refill Skin: Warm, Dry, Intact Wound/Incisions: Healing Well Neurological: No New Focal Deficit Psy/Mental Status: Alert, Normal Affect, Normal Mood - Problem List & Annotations (1) Active labor at term SNOMED Code(s): 13545887 Code(s): GRE0958 - Status: Acute Current Visit: Yes (2) Multigravida of advanced maternal age in third trimester SNOMED Code(s): 728832302, 305429188 Code(s): O09.523 - SUPERVISION OF ELDERLY MULTIGRAVIDA, THIRD TRIMESTER Status: Acute Current Visit: Yes (3) Normal vaginal delivery of ninth SNOMED Code(s): 21080846, 897416133 Code(s): O80 - ENCOUNTER FOR FULL-TERM UNCOMPLICATED DELIVERY Status: Acute Current Visit: Yes (4) SNOMED Code(s): 29164090 Code(s): Z34.90 - ENCNTR FOR SUPRVSN OF NORMAL , UNSP, UNSP TRIMESTER Status: Acute Current Visit: Yes Qualifiers: Weeks of gestation: 40 weeks Qualified Code(s): Z3A.40 - 40 weeks gestation of (5) affected by growth restriction SNOMED Code(s): 020713116, 464615760 Code(s): O36.5990 - MATERN CARE FOR OTH OR SUSP POOR FETL GRTH, UNSP TRI, UNSP Status: Acute Current Visit: Yes (6) SROM (spontaneous rupture of membranes) SNOMED Code(s): 214777386 Code(s): JWD4682 - Status: Acute Current Visit: Yes - Problem List Review Problem List Initiated/Reviewed/Updated: Yes - My Orders Last 24 Hours: My Active Orders 07/02/17 09:27 Patient Status [ADT] Routine 07/02/17 09:48 Up ad Winter [RC] ASDIRECTED Vital Signs [RC] PER UNIT ROUTINE Acetaminophen [Tylenol] 650 mg PO Q4H PRN Sodium Chloride 0.9% [Saline Flush] 10 ml FLUSH ASDIRECTED PRN Saline Lock Insert [OM.PC] Routine Resuscitation Status Routine 07/02/17 09:52 Acetaminophen [Tylenol Bulk Bottle] 325 - 650 mg PO Q4H PRN Ibuprofen [Motrin Bulk Bottle] 600 mg PO Q6H PRN Assess Lochia [WOMSER] Per Unit Routine Assess Uterine Involution [WOMSER] Per Unit Routine 07/02/17 09:58 Acetaminophen/Codeine [Tylenol with Codeine No.3 300MG/30MG] 1 - 2 tab PO Q4H PRN Docusate Sodium [Colace] 100 mg PO BID PRN Lanolin [Lansinoh HPA] 0 gm TOP ASDIRECTED PRN Tammy Servinel [Tucks] 1 pad TOP ASDIRECTED PRN 07/03/17 09:00 Vit with Ca/FA/Iron [ Plus Iron] 1 each PO DAILY - Assessment Assessment:: 07/02/2017 37 yo G12 now P9 at 40 0/7 gestational weeks without complications A positive, GBS negative, RPR nonreactive, Rubella Immune, Hep B negative, HIV negative 07/02/2017 Plan- Routine Cares Encourage and Support Plan a 24-48 hr discharge 07/03/2017 Normal Day One Hgb-10.6 Voiding and Passing Gas Fundus firm bleeding decreasing well - Plan Plan:: 07/02/2017 37 yo presented to labor and delivery in labor at 40 weeks gestation SVE-4/75/-1 GBS negative, A positive, Rubella Immune, RPR nonreactive, Hep B negative, HIV negative Plan- Monitor for active labor Up and about Intermittent monitoring Epidural for pain management per patient request Anticipate and plan for a vaginal delivery 07/03/2017 Routine Cares Encourage and Support Plan discharge tomorrow
[2017-07-03] MEDS: Prenatal Multivitamin with Calcium/Folic Acid/Iron Tab PO SCH (13:52)
[2017-07-03] MEDS: Acetaminophen/Codeine 300-30 MG Tab PO PRN (21:56)
[2017-07-04 08:59] VITALS: BP 112/83
[2017-07-04] MEDS: Prenatal Multivitamin with Calcium/Folic Acid/Iron Tab PO SCH (09:01)
--- NOTE | 2017-07-04 09:56 | PCM.PNPP ---
- General Info Date of Service: 07/04/17 (PPD 2) Admission Dx/Problem (Free Text): Patient Status Order with Admit Dx/Problem 07/02/17 03:59 Patient Status [ADT] Routine 07/02/17 09:27 Patient Status [ADT] Routine Admission Diagnosis/Problem Admission Diagnosis/Problem Functional Status: Reports: Pain Controlled - Review of Systems General: Reports: No Symptoms HEENT: Reports: No Symptoms Pulmonary: Reports: No Symptoms Cardiovascular: Reports: No Symptoms, Other (left lul hard slightly tender vein , deltoid area, has varicose veins) Gastrointestinal: Reports: No Symptoms Genitourinary: Reports: No Symptoms Musculoskeletal: Reports: No Symptoms Skin: Reports: No Symptoms Neurological: Reports: No Symptoms Psychiatric: Reports: No Symptoms - General Info Date of Service: 07/04/17 - Patient Data Vital Signs - Most Recent: Last Vital Signs Temp 98.4 F 07/04/17 08:58 Pulse 64 07/04/17 08:58 Resp 16 07/04/17 08:58 BP 112/83 07/04/17 08:58 Pulse Ox 98 07/04/17 08:58 Weight - Most Recent: 153 lb I&O - Last 24 Hours: Intake & Output 07/03/17 07/04/17 07/04/17 22:59 06:59 14:59 Intake Total 1940 240 Balance 1940 240 Med Orders - Current: Current Medications Acetaminophen (Tylenol) 650 mg PO Q4H PRN PRN Reason: Pain (Mild 1-3) and fever Acetaminophen (Tylenol Bulk Bottle) 325 - 650 mg PO Q4H PRN PRN Reason: Pain Last Admin: 07/02/17 12:23 Dose: 1 bottle Acetaminophen/Codeine Phosphate (Tylenol With Codeine No.3 300mg/30mg) 1 - 2 tab PO Q4H PRN PRN Reason: Pain (moderate 4-6) Last Admin: 07/03/17 21:56 Dose: 1 tab Docusate Sodium (Colace) 100 mg PO BID PRN PRN Reason: Constipation Emollient Ointment (Lansinoh Hpa) 0 gm TOP ASDIRECTED PRN PRN Reason: Sore Nipples Last Admin: 07/02/17 21:32 Dose: 1 applic Ropivacaine 200 mg/ Premix 100 mls @ 0 mls/hr EPIDUR ASDIRECTED WYATT Last Admin: 07/02/17 05:00 Dose: 12 mls/hr Ibuprofen (Motrin Bulk Bottle) 600 mg PO Q6H PRN PRN Reason: Pain Last Admin: 07/02/17 12:23 Dose: 1 bottle Ondansetron HCl (Zofran) 4 mg IV Q4H PRN PRN Reason: Nausea/Vomiting Prenat Multivit/Gurdon/Iron/Folic Ac ( Plus Iron) 1 each PO DAILY [facility] Last Admin: 07/04/17 09:01 Dose: 1 each Sodium Chloride (Saline Flush) 10 ml FLUSH ASDIRECTED PRN PRN Reason: Keep Vein Open Witch Amanda (Tucks) 1 pad TOP ASDIRECTED PRN PRN Reason: Hemorrhoids Discontinued Medications Ropivacaine (Naropin 0.2%) Confirm Administered Dose 100 mls @ as directed .ROUTE .STK-MED ONE Stop: 07/02/17 04:44 Oxytocin/Sodium Chloride (Pitocin In Ns 20 Units/1,000 Ml) Confirm Administered Dose 20 unit in 1,000 mls @ as directed .ROUTE .STK-MED ONE Stop: 07/02/17 07:20 Last Admin: 07/02/17 12:25 Dose: Not Given Oxytocin/Sodium Chloride (Pitocin In Ns 20 Units/1,000 Ml) 20 unit in 1,000 mls @ 2,997 mls/hr IV ONETIME ONE; 999 MUNITS/MIN PRN Reason: Protocol Stop: 07/02/17 10:11 Last Admin: 07/02/17 12:24 Dose: 999 munits/min, 2,997 mls/hr Lactated Ringer's (Ringers, Lactated) 1,000 mls @ 999 mls/hr IV BOLUS ONE Stop: 07/02/17 05:00 Last Admin: 07/02/17 04:00 Dose: 999 mls/hr Lidocaine HCl (Xylocaine 1%) Confirm Administered Dose 100 ml .ROUTE .STK-MED ONE Stop: 07/02/17 07:20 Last Admin: 07/02/17 12:25 Dose: Not Given - Interaction Infant Disposition, : at Bedside Infant Interaction: Holding Infant Feeding: Breastfed Infant; Nursed Well Support Person: - Recovery Exam Fundal Tone: Firm Fundal Level: 2 Fingerbreadths Below Umbilicus Fundal Placement: Midline Lochia Amount: Small Lochia Color: Rubra/Red Perineum Description: Intact, Minimal Bruising/Swelling Episiotomy/Laceration: None Urinary Elimination: Voided - Exam General: Alert, Oriented HEENT: Pupils Equal, Mucous Membr. Moist/[place] Neck: Supple Lungs: Clear to Auscultation, Normal Respiratory Effort Cardiovascular: Regular Rate, Regular Rhythm GI/Abdominal Exam: Normal Bowel Sounds, Soft Extremities: No Pedal Edema, Other (nonrender vein which is hard to palpation) Skin: Warm, Dry, Intact Neurological: No New Focal Deficit Psy/Mental Status: Alert, Normal Affect, Normal Mood - Problem List & Annotations (1) Superficial thrombophlebitis SNOMED Code(s): 1970431 Code(s): I80.9 - PHLEBITIS AND THROMBOPHLEBITIS OF UNSPECIFIED SITE Status : Acute Current Visit: Yes Qualifiers: Superficial thrombophlebitis-Involved body area: lower extremity Laterality : left Qualified Code(s): I80.02 - Phlebitis and thrombophlebitis of superficial vessels of left lower extremity - Problem List Review Problem List Initiated/Reviewed/Updated: Yes - My Orders Last 24 Hours: My Active Orders 07/04/17 09:37 VL Duplex Lwr Ext Veins Ltd Lt [US] Routine - Assessment Assessment:: 07/02/2017 37 yo G12 now P9 at 40 0/7 gestational weeks without complications A positive, GBS negative, RPR nonreactive, Rubella Immune, Hep B negative, HIV negative 07/02/2017 Plan- Routine Cares Encourage and Support Plan a 24-48 hr discharge 07/03/2017 Normal Day One Hgb-10.6 Voiding and Passing Gas Fundus firm bleeding decreasing well 07/04/17 doing well wants to go home Concern for superficial thrombophlebitis lower left leg - Plan Plan:: 07/02/2017 37 yo presented to labor and delivery in labor at 40 weeks gestation SVE-/-1 GBS negative, A positive, Rubella Immune, RPR nonreactive, Hep B negative, HIV negative Plan- Monitor for active labor Up and about Intermittent monitoring Epidural for pain management per patient request Anticipate and plan for a vaginal delivery 07/03/2017 Routine Cares Encourage and Support Plan discharge tomorrow 07/04/17 venous ultrasound this morning, R/O DVT to see Davonte Ohara in 6 weeks for post visit. See what US shows, treat as needed.
--- NOTE | 2017-07-06 10:20 | US ---
VL Duplex Lwr Ext Veins Ltd Lt painful corded vein left foot/ankle FINDINGS: Ultrasound examination of the lower extremity using Doppler and compressive technique demon strates that the common femoral, femoral, and popliteal veins are patent, and negative for thrombus. The deep calf veins were segmentally visualized and are negative where seen. Varicosity of the left l yaz saphenous vein contains superficial thrombus at the level of the ankle. IMPRESSION: Negative for deep venous thrombosis. Superficial thrombus.
== END 2017-07-04 13:00 | disposition home or self-care (01) | DRG 560 ==
LOC: JP.OBCHECK 01:27 → JP.OB 03:45 → OBSVTOIN 09:27 → JP.MS 13:16
PROVIDERS: ADMIT Advanced Practice Midwife; ATTEND Advanced Practice Midwife
PROC: 10E0XZZ Delivery of Products of Conception, External Approach (ICD-10-PCS; principal; 2017-07-02)
PROC: 00HU33Z Insertion of Infusion Device into Spinal Canal, Percutaneous Approach (ICD-10-PCS; 2017-07-02)
DX: O69.81X0 Labor and delivery complicated by cord around neck, without compression, not applicable or unspecified (principal); Z3A.40 40 weeks gestation of pregnancy; Z37.0 Single live birth; O87.0 Superficial thrombophlebitis in the puerperium; I80.02 Phlebitis and thrombophlebitis of superficial vessels of left lower extremity; O36.5990 Maternal care for other known or suspected poor fetal growth, unspecified trimester, not applicable or unspecified
CPT/HCPCS: 36415; 80305; 81001; 84112; 85027; 88307; 93971-26-LT; 93971-LT; 99211; A9270-GY; J2590; J2795; J7120